=== PATIENT | male | born 1975 ===

== ENCOUNTER 2019-12-13 14:05 | Emergency (ER) | payer OTHER ==
[~2019-12-13] VITALS: Ht 180.3 cm; Wt 136.1 kg
[2019-12-13] MEDS ORDERED: NAPR550 PO (14:26)
[2019-12-13] MEDS ORDERED: SERT100 PO (14:28)
[2019-12-13] MEDS ORDERED: METF500C PO (14:28)
== END 2019-12-13 14:33 | disposition home or self-care (01) ==
LOC: ER 14:05
DX: S92.912A Unspecified fracture of left toe(s), initial encounter for closed fracture (principal); E11.9 Type 2 diabetes mellitus without complications; Z79.899 Other long term (current) drug therapy; Z79.84 Long term (current) use of oral hypoglycemic drugs; W06.XXXA Fall from bed, initial encounter
CPT/HCPCS: 99282